=== PATIENT | female | born 1955 | race Caucasian/White ===

== ENCOUNTER → 2016-09-19 08:51 | Outpatient (CLI) | payer BC | END | disposition home or self-care (01) | LOC: D.CT 08:51 | DX: R10.9 Unspecified abdominal pain (principal) ==

== ENCOUNTER → 2016-10-24 21:07 | Outpatient (CLI) | payer BC ==
[2016-10-24 21:38] LABS: HELICOBACTER PYLORI IGG NEGATIVE (NEGATIVE)
== END | disposition home or self-care (01) ==
LOC: D.LABREF 21:07
PROVIDERS: Family Medicine
DX: R10.9 Unspecified abdominal pain (principal)